=== PATIENT | female | born 1985 | race African-American/Black ===

== ENCOUNTER 2020-06-13 07:55 | Emergency (ER) | payer OTHER, SELFPAY ==
[2020-06-13] VITALS (29 sets, daily range): BP systolic 97–118; BP diastolic 51–95; PULSE 77–94; RESP 15–18; TEMP 36.6; O2SAT 94–100
--- NOTE | ~2020-06-13 | US_ITS ---
EXAMINATION: US pelvic complete w TV EXAM DATE: 06/13/2020 09:26 INDICATION: Right lower quadrant pain. TECHNIQUE: Pelvic transabdominal and transvaginal sonogram was performed. There are multiple graysca le and Doppler images available for interpretation. There is no prior study for comparison. FINDINGS: Uterus measures 9.4 x 5.4 x 6.8 cm, and is morphologically normal. Endometrial stripe debi sures 12 mm, within normal limits. There is no free pelvic fluid. Right adnexa: The ovary measures 6.3 x 4.7 x 4.6 cm, with a complex cystic region with both anechoic regions and larger amount of isoechoic region to the normal ovarian parenchyma, but no vascularity co nfirmed within it. More peripheral ovarian vascular flow confirmed. Left adnexa: The ovary is not identified. There is no adnexal mass. IMPRESSION: Complex cystic right ovarian lesion, could be hemorrhagic cyst, endometrioma, less likely neoplasm. No torsion. Recommend 6 week follow-up pelvic sonogram. Reviewed, dictated and finalized at location D. [facility] [employer] IMPRESSION: Complex cystic right ovarian lesion, could be hemorrhagic cyst, end ometrioma, less likely neoplasm. No torsion. Recommend 6 week follow-up pelvic sonogram.
--- NOTE | 2020-06-13 08:12 | PC.NURSE ---
Asked pt to provide urine sample. Pt states she is unable to provide urine sample at this time. Will try again shortly. Call light within reach.
[2020-06-13 08:17] LABS: Basophils Absolute Auto 0.1 K/mm3 (0.0-0.1); Basophils Percent Auto 1.1 % (0.2-1.2); Eosinophils Percent Auto 0.6 % (0-4.4); Hematocrit 37.4 % (37.0-47.0); Hemoglobin 12.5 g/dL (12.0-15.0); Immature Granulocyte Absolute 0.01 K/mm3 (0.00-0.031); Immature Granulocyte Percent A 0.2 % (0-0.5); Lymphocytes Absolute Auto 1.51 K/mm3 (0.9-3.2); Lymphocytes Percent Auto 28.5 % (18.3-44.2); Mean Corpuscular HGB Conc 33.4 g/dl (32-36); Mean Corpuscular Hemoglobin 28.9 pg (26-34); Mean Corpuscular Volume 86.4 fl (80-100); Mean Platelet Volume 9.5 fl (7.4-10.4); Monocytes Absolute Auto 0.5 K/mm3 (0.1-0.6); Monocytes Percent Auto 10.2 % (2.6-8.5); Neutrophils Absolute Auto 3.2 K/mm3 (1.3-6.7); Neutrophils Percent Auto 59.4 % (45.5-73.1); Platelet Count Result 265 k/mm3 (150-375); Red Blood Count 4.33 M/mm3 (4.2-5.4); Red Cell Distribution Width 14.2 % (11.5-14.5); White Blood Count 5.3 K/mm3 (4.5-10.0)
--- NOTE | 2020-06-13 08:19 | PC.NURSE ---
Dr. Rivera at bedside for pt assessment.
[2020-06-13 08:30] LABS: Alanine Aminotransferase 8 U/L (4-35); Albumin Level 3.9 g/dL (3.5-5.1); Alkaline Phosphatase 61 U/L (38-126); Anion Gap 6 mmol/L (8-16); Aspartate Amino Transferase 18 U/L (14-36); Bilirubin,Total 0.4 mg/dL (0.2-1.3); Blood Urea Nitrogen 10 mg/dL (7-17); Calcium 8.9 mg/dL (8.4-10.2); Carbon Dioxide 27 mmol/L (22-30); Chloride 106 mmol/L (98-107); Estimated CRCL calculation 97 ml/min; Estimated Glomerular Filt Rate > 60; Glucose 96 mg/dL (65-105); Lipase 81 U/L (23-300); Potassium 3.8 mmol/L (3.4-5.0); Sodium 139 mmol/L (137-145)
[2020-06-13] MEDS: HYDROmorphone HCL INJ (*CRX) 1 MG/ML SYR 0.5 MG IV PUSH (08:36)
[2020-06-13] MEDS: ONDANSETRON INJ 4 MG/2 ML VIAL IV PUSH (08:36)
--- NOTE | 2020-06-13 08:42 | ED.ABDPAIN ---
HPI - Abdominal Pain General Chief Complaint: Abdominal Pain Stated Complaint: abd pain Time Seen by Provider: 06/13/20 07:56 Source: patient Mode of arrival: EMS Limitations: no limitations History of Present Illness HPI narrative: This is a 34 year old female who presents for evaluation of right lower abdominal pain. She developed pain 2 hours ago. Her pain is severe and it radiates to her right lower back. She took 2 Aleve at the onset of her pain and she states she hasn't had any relief. She denies fever or chills. She reports burning with urination for 1 month and abnormal vaginal discharge. She has been evaluated at an Outside hospital for urinary symptoms and vaginal discharge multiple times and she states her last evaluated for 2 weeks ago. She states she was told she was negative for STDs and she did not have a UTI. She had a bowel movement today. MD elicited complaint: abdominal pain Related Data Home Medications Medication Instructions Recorded Confirmed No Home Medications 06/13/20 06/13/20 Allergies Allergy/AdvReac Type Severity Reaction Status Date / Time metronidazole [From Flagyl] Allergy Hives Verified 06/13/20 08:00 naproxen Allergy Hives Verified 06/13/20 08:00 tramadol Allergy Hives Verified 06/13/20 08:00 Review of Systems Review of Systems: All systems reviewed & are unremarkable except as noted in HPI and below PMFSH Past Medical History Medical History (Updated 06/13/20 @ 12:21 by Goldie Rivera MD) Patient denies medical problems Surgical History Surgical History (Updated 06/13/20 @ 08:46 by Goldie Rivera MD) Hx of appendectomy Social History Social History (Updated 06/13/20 @ 08:46 by Goldie Rivera MD) Smoking status: Former smoker Exam Narrative: Exam Narrative: GENERAL: Well-appearing, well-nourished, and in no acute distress. HEAD: Normocephalic, atraumatic EYES: PERRLA and EOMI, conjunctiva clear without discharge THROAT:Mucous membranes moist, NECK: Supple, without lymphadenopathy or mass RESPIRATORY: No respiratory distress, Airway patent, Respirations non-labored, Clear to auscultation without rales, rhonchi or wheeze HEART: Regular rate and rhythm. No murmur heard. Normal peripheral pulses. ABDOMEN: Soft,RLQ ttp, nondistended, normal active bowel sounds. No masses. No rebound or guarding, No organomegaly. EXTREMITIES: No edema, normal strength with full range of motion. SKIN: Warm, dry, normal color without rash NEURO: Alert and oriented x3. CN 2-12 grossly intact. No focal deficits. PSYCH: Normal mood and affect. : General: Yes no CVA tenderness Speculum Exam - Vagina: normal vaginal discharge Speculum Exam - Cervix: normal appearance of the cervix and Cervical os closed Bimanual Exam- Adnexa, other: tender Course Reevaluation(s) Reevaluation #1: I Discussed with patient labs were unremarkable. Ultrasound shows a right ovary cystic mass . She states she has an OBGYN that is following her cyst so she is aware of it. I discussed discharge plan for her to follow up with OBGYN for repeat US. Date: 06/13/20 Time: 12:15 Vital Signs Vital signs: Vital Signs Temperature 97.8 F 06/13/20 07:54 Pulse Rate 78 06/13/20 07:54 Respiratory Rate 15 06/13/20 07:54 Pulse Oximetry 100 06/13/20 07:54 Temperature 97.8 F 06/13/20 07:54 Pulse Rate 77 06/13/20 12:42 Respiratory Rate 18 06/13/20 12:42 Blood Pressure 106/63 06/13/20 12:33 Pulse Oximetry 94 06/13/20 12:42 MDM - Abdominal Pain Lab Data Attestation: I reviewed the patient's lab results. Result diagrams: 06/13/20 08:09 06/13/20 08:09 Labs: Lab Results 06/13/20 06/13/20 06/13/20 Range/Units 08:09 08:09 08:32 WBC 5.3 (4.5-10.0) K/mm3 RBC 4.33 (4.2-5.4) M/mm3 Hgb 12.5 (12.0-15.0) g/dL Hct 37.4 (37.0-47.0) % MCV 86.4 (80-100) fl MCH 28.9 (26-34) pg MCH
[2020-06-13 08:49] LABS: Add Urine Microscopic? YES; Appearance Urine Clear (Clear); Bilirubin Urine Negative (Negative); Blood Urine Negative (Negative); Color Urine Yellow (Yellow); Glucose Urine UA Negative (Negative); Ketones Urine Negative (Negative); Leukocyte Esterase Ur Negative LEU/UL (Negative); Mucus Urine Rare /lpf; Nitrate Urine Negative (Negative); Protein Urine Negative (Negative); RBC Urine 0-2 /hpf (0-2); Squamous Epithelial Cell Urine Occasional /hpf (Few); WBC Urine 0-3 /hpf
--- NOTE | 2020-06-13 09:01 | PC.NURSE ---
Pt in ultrasound.
[2020-06-13] MEDS: KETOROLAC 30 MG/ML VIAL (*BKC) IV PUSH (09:38)
[2020-06-13] MEDS: HYDROmorphone HCL INJ (*CRX) 1 MG/ML SYR IV PUSH (09:39)
[2020-06-13] MEDS: oxyCODONE/ACETAMINOPHEN (*CRX) 5-325 MG TABLET 1 TABLET PO (12:27)
== END 2020-06-13 12:58 | disposition home or self-care (01) ==
PROVIDERS: Emergency Provider General Practice; PCP Physician Assistant
DX: N83.201 Unspecified ovarian cyst, right side (principal); Z87.891 Personal history of nicotine dependence
CPT/HCPCS: 36415; 76830; 76856; 80053; 81001; 81025; 83690; 85025; 87070; 87491; 87591; 87808; 96374; 96375; 96376; 99284; A9270; J1170; J1885; J2405